=== PATIENT | male | born 1970 | race Hispanic/Latino ===

== ENCOUNTER 2021-02-14 10:58 | Outpatient (CLI) | payer OTHER ==
[2021-02-14 11:45] LABS: Blood Urea Nitrogen 9 mg/dL (9-20)
--- NOTE | 2021-02-14 13:25 | Cat Scan Report ---
CT ABDOMEN AND PELVIS WITH CONTRAST INDICATION / CLINICAL INFORMATION: ESOPHAGEAL,HEPATOMEGALY 100ML OF 300 OMNIPAQUE GIVEN. TECHNIQUE: Axial CT images were obtained through the abdomen and pelvis after 100 cc IV contrast. Sagittal and c oronal reformatted images. All CT scans at this location are performed using CT dose reduction for AL LOIS by means of automated exposure control. COMPARISON: None available. FINDINGS: LOWER CHEST: No significant abnormality. LIVER: No significant abnormality. No hepatomegaly, parenchymal disease or mass. GALLBLADDER: No significant abnormality. BILE DUCTS: No significant abnormality. PANCREAS: No significant abnormality. SPLEEN: No significant abnormality. ADRENALS: No significant abnormality. RIGHT KIDNEY and URETER: No significant abnormality. LEFT KIDNEY and URETER: No significant abnormality. STOMACH and SMALL BOWEL: No significant abnormality. COLON: Few scattered diverticula are identified. No inflammatory changes or obstruction. APPENDIX: No significant abnormality. PERITONEUM: No free fluid. No free air. No fluid collection. LYMPH NODES: No significant adenopathy. AORTA and ARTERIES: No significant abnormality. IVC and VEINS: No significant abnormality. URINARY BLADDER: No significant abnormality. REPRODUCTIVE ORGANS: No significant abnormality. ADDITIONAL FINDINGS: None. SKELETAL SYSTEM: No significant abnormality. IMPRESSION: No significant abnormality. Signer Name: Yousif Rowan Jr, MD Signed: 02/14/2021 1:18 PM Workstation Name: [id number]
== END 2021-02-14 10:59 | disposition home or self-care (01) ==
LOC: CT 10:58
DX: R13.10 Dysphagia, unspecified (principal); R16.0 Hepatomegaly, not elsewhere classified
CPT/HCPCS: 36415; 74177; 82565; 84520; Q9967